=== PATIENT | female | born 2005 | race Caucasian/White ===

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

== ENCOUNTER 2024-05-31 07:03 | Emergency (ER) | payer OTHER ==
[2024-05-31] MEDS ORDERED: Ondansetron ODT 4 MG TAB ONE (07:16)
[2024-05-31] MEDS ORDERED: Ondansetron PF 4 MG/2 ML Vial ONE (07:50)
[2024-05-31] MEDS ORDERED: Ketorolac Tromethamine 30 MG (1 mL) VIAL ONE (07:50)
[2024-05-31 08:04] LABS: BHCG - Serum Negative (NEGATIVE); Pregs Control Background? CLEAR/WHITE (CLR/WHITE); Pregs Control Bar Appear? YES (CONTROL BAR)
[2024-05-31 08:10] LABS: ALT (SGPT) 12 U/L (8-55); AST (SGOT) 14 U/L (5-34); Albumin 4.4 g/dL (3.5-5.0); Alkaline Phosphatase 51 U/L (40-100); Anion Gap 15 mmol/L (10-20); BUN (Urea Nitrogen) 14 mg/dL (7.0-18.7); Bilirubin, Total 0.9 mg/dL (0.2-1.2); Calc. Creatinine Clearance 0 mL/min (70-130); Calcium 9.8 mg/dL (7.8-10.44); Carbon Dioxide 23 mmol/L (22-29); Chloride 105 mmol/L (98-107); Estimated GFR 130; Globulin 3.4 g/dL (2.4-3.5); Glucose 100 mg/dL (70-105); Lipase 7 U/L (8-78); Potassium 3.7 mmol/L (3.5-5.1); Protein, Total 7.8 g/dL (6.0-8.3); Sodium 139 mmol/L (136-145)
[2024-05-31 08:23] LABS: #Basophils 0.02 10x3/uL (0.0-0.2); #Eosinophils 0.11 10x3/uL (0.0-0.5); #Neutrophils 4.45 10x3/uL (1.5-8.4); %Basophils 0.3 % (0.0-2.0); %Eosinophils 1.8 % (0.0-6.0); %Lymphocytes 17.4 % (18.0-47.0); %Monocytes 6.6 % (0.0-10.0); %Neutrophils 73.6 % (40.0-75.0); Hematocrit 41.7 % (34.9-44.5); Mean Corpuscular HGB CONC 33.6 g/dL (32.0-36.0); Mean Corpuscular Hemoglobin 29.1 pg (27.0-33.0); Mean Corpuscular Volume 86.7 fL (81.6-98.3); Mean Platelet Volume 10.3 fL (7.4-10.4); Platelet Count 327 10x3/uL (150-450); RBC Distribution Width 11.9 % (11.5-14.5); Red Blood Cell (RBC) Count 4.81 10x6/uL (3.90-5.03); White Blood Cell (WBC) Count 6.1 10x3/uL (3.5-10.5)
[2024-05-31 09:26] LABS: Bilirubin Neg (Negative); Blood, Urine 250 (Negative); Glucose, Urine (Dipstick) Normal (Negative); Ketone, Urine Negative (Negative); Leukocyte Negative (Negative); Nitrite Negative (Negative); Protein, Urine (Dipstick) 15 mg/dl (Neg-Trace); Urobilinogen Normal mg/dL (Less than 2)
[2024-05-31 09:29] LABS: Clarity Clear (Clear)
[2024-05-31] MEDS ORDERED: Famotidine/PF 20 mg/2ml Vial ONE (09:33)
[2024-05-31 10:13] LABS: Bacteria/HPF Rare-Few HPF (None Seen); CAUTI Indications for Culture Pelvic or flank pain; Squamous Epithelial 0-3 HPF (0-3); WBC/HPF 0-3 HPF (0-3)
[2024-05-31 10:14] LABS: Urine Culture Reflex No No
[2024-05-31] MEDS ORDERED: Iopamidol 370 76% 100 ML VIAL ONE (12:28)
== END 2024-05-31 09:57 | disposition home or self-care (01) ==
LOC: CSHERS 07:03
DX: N94.6 Dysmenorrhea, unspecified (principal); Z55.6 Problems related to health literacy
CPT/HCPCS: 74177; 80053; 81001; 83690; 84703; 85025; 96374; 96375; J1885; J2405; J3490; Q0162; Q9967